=== PATIENT | male | born 2000 | race Caucasian/White ===

== ENCOUNTER 2023-06-05 14:26 | Emergency (ER) | payer OTHER ==
[2023-06-05 14:53] VITALS: BP 115/63; PULSE 88; RESP 17; TEMP 98.3
[2023-06-05 15:36] LABS: PH,URINE 5.5 (5.0-8.0); URINE APPEARANCE CLEAR; URINE BILIRUBIN NEGATIVE (NEGATIVE); URINE COLOR YELLOW; URINE GLUCOSE (UA) NEGATIVE (NEGATIVE); URINE KETONE NEGATIVE (NEGATIVE); URINE LEUK ESTERASE NEGATIVE (NEGATIVE); URINE NITRITE NEGATIVE (NEGATIVE); URINE PROTEIN NEGATIVE (NEGATIVE)
[2023-06-05 16:23] LABS: BASO % 0.3 % (0-2.0); EOS % 2.5 % (0-4.5); HEMATOCRIT 41.1 % (35.4-49); HEMOGLOBIN 13.9 GM/dL (11.7-16.9); LYMPH % 21.9 % (8-40); MCH 31.1 pg (25.7-33.7); MCHC 33.7 g/dl (32.0-35.9); MEAN CELL VOLUME 92.1 fl (80-96); MEAN PLT VOLUME 7.4 fl (7.5-11.1); MONO % 8.7 % (3.8-10.2); NEUT % 66.6 % (42.8-82.8); PLATELET COUNT 300 10^3/uL (134-434); RBC 4.47 M/mm3 (4.00-5.60); RDW 12.6 % (11.9-15.9); WHITE BLOOD COUNT 9.4 K/mm3 (4.0-10.0)
[2023-06-05 16:44] LABS: POTASSIUM 3.8 mmol/L (3.5-5.1)
[2023-06-05 16:46] LABS: CALCIUM 9.6 mg/dL (8.5-10.1)
[2023-06-05 16:47] LABS: BLOOD UREA NITROGEN 14.1 mg/dL (7-18)
[2023-06-05 16:50] LABS: CREATININE 0.7 mg/dL (0.55-1.3)
[2023-06-05] MEDS ORDERED: IBUPROFEN 600 MG TABLET (FP) PO ONE ×2 (17:13→17:18)
[2023-06-05] MEDS ORDERED: ACETAMINOPHEN 500 MG TABLET (FP) PO ONE (17:13)
[2023-06-05] MEDS ORDERED: ACETAMINOPHEN 325 MG TABLET (FP) ONE (17:18)
[2023-06-05] MEDS ORDERED: KETOROLAC TROMETHAMINE 15 MG/ML VIAL ONE (17:31)
== END 2023-06-05 17:37 | disposition home or self-care (01) ==
LOC: JER 14:26
DX: N50.812 Left testicular pain (principal); R10.32 Left lower quadrant pain
CPT/HCPCS: 36415; 76870-TC; 80048; 81003; 85025; 86780; 87086; 87491; 87591; 87661; 99284-25